=== PATIENT | female | born 1940 | race Caucasian/White ===

== ENCOUNTER 2020-04-13 20:14 | Observation (INO) ==
[2020-04-13] MEDS ORDERED: MECLIZINE 25 MG TABLET PO STA (20:57)
[2020-04-13] MEDS ORDERED: SODIUM CHLORIDE 0.9% 500 ML IV STA (20:57)
[2020-04-13] MEDS ORDERED: HYDROmorphone 2 MG/1 ML VIAL IV STA (20:57)
[2020-04-13] MEDS ORDERED: ONDANSETRON 4 MG/2 ML VIAL IV STA (20:57)
[2020-04-13 21:33] LABS: Basophils % 0.6 % (0.0-0.8); Eosinophils # 0.1 10*3/uL (0.0-0.87); Eosinophils % 1.4 % (0.00-10.9); Hematocrit 39.8 VOL% (35.7-47.0); Hemoglobin 12.9 GM/DL (12.0-16.0); Immature Granulocytes % 0.3 %; Immature Granulocytes Absolute 0.02 #; Lymphocytes # 1.4 10*3/uL (1.4-4.0); Lymphocytes % 22.2 % (21.3-54.2); Mean Corpuscular HGB Conc 32.4 GM/DL (32-36); Mean Corpuscular Volume 89.8 FL (87-102); Mean Platelet Volume 8.4 FL (9.6-12.0); Monocytes % 13.1 % (1.7-12.7); Neutrophils % 62.4 % (38.7-73.9); Platelet Count 293 T/CUMM (130-400); Red Blood Count 4.43 MC/CUMM (3.8-5.5); Red Cell Distribution Width 12.7 % (9.3-17.3); White Blood Count 6.4 T/CUMM (4-12)
[2020-04-13 21:42] LABS: PT Patient Result 11.2 SECS (9.8-11.9)
[2020-04-13 21:50] LABS: Alanine Aminotransferase < 9 U/L (13-56); Albumin 3.7 G/DL (3.4-5.0); Alkaline Phosphatase 88 U/L (45-117); Aspartate Amino Transferase 24 U/L (0-37); Blood Urea Nitrogen 16 MG/DL (7-18); CKMB % 2.8 %; Calcium 8.8 MG/DL (8.5-10.1); Estimated Glom Filtration Rate 73 ML/MIN; Glucose 113 MG/DL (74-106); Osmolality,Calculated 263.7 MOS/KG (273-304); Total Protein 6.8 G/DL (6.4-8.3); Troponin I < 0.015 NG/ML (0.00-0.045)
[2020-04-13] MEDS ORDERED: POTASSIUM CHLORIDE 20 MEQ TABLET PO STA (21:54)
[2020-04-13] MEDS ORDERED: MAGNESIUM SULF RIDER 2 GM in PREMIX 1 EACH IV STA (21:54)
[2020-04-13 21:59] LABS: Apearance,Urine CLEAR (Clear); Bilirubin,Urine Negative (Negative); Blood, Urine Small mg/dL (Negative); Ferritin 42.2 ng/ml (8-252); Glucose,Urine (UA) Negative (Negative); Ketones,Urine 5 mg/dL (Negative); Mucus,Urine Occasional /LPF (Occasional); Nitrite,Urine Negative (Negative); Protein,Urine Negative; RBC,Urine 6 /HPF (0-4); Urine Color Yellow (Yellow); Urine Specific Gravity 1.017 (1.001-1.035); Urine Urobilinogen < 2.0 EU/DL (0.2-1.0); WBC,Urine 17 /HPF (0-6)
[2020-04-13 22:26] LABS: Barbiturates Screen,Urine Negative (Negative); Benzodiazepines Screen,Urine Negative (Negative); Cannabinoid Screen,Urine Negative (Negative); Opiate Screen,Urine Negative (Negative); Phencyclidine Screen,Urine Negative (Negative)
[2020-04-13] MEDS ORDERED: POTASSIUM BICARB EFFERVESCENT 25 MEQ TABLET PO ONE (22:26)
[2020-04-13] MEDS ORDERED: HYDROmorphone 2 MG/1 ML VIAL IV ONE (22:26)
[2020-04-13] MEDS ORDERED: NITROGLYCERIN 2% OINT 1 INCH/GM PACK TOP ONE (22:35)
[2020-04-13] MEDS ORDERED: ASPIRIN 325 MG TABLET ONE (22:35)
[2020-04-13] MEDS ORDERED: cefTRIAXone 1,000 MG in SODIUM CHLORIDE 0.9% 100 ML IV STA (22:39)
[2020-04-13] MEDS ORDERED: ENOXAPARIN 100 MG/ML SYRINGE SUBCUT STA (22:40)
[2020-04-13] MEDS ORDERED: ASPIRIN CHEW 81 MG TABLET PO STA (23:37)
[2020-04-13] MEDS ORDERED: NITROGLYCERIN 2% OINT 1 INCH/GM PACK TOP STA (23:38)
[2020-04-14] MEDS ORDERED: ONDANSETRON 4 MG/2 ML VIAL IV STA (00:05)
[2020-04-14] MEDS ORDERED: ONDANSETRON 4 MG/2 ML VIAL IV PRN (00:25)
[2020-04-14] MEDS ORDERED: DOCUSATE SODIUM 100 MG CAPSULE PO PRN (00:25)
[2020-04-14] MEDS ORDERED: PROMETHAZINE 25 MG/1 ML VIAL IM PRN (00:25)
[2020-04-14] MEDS ORDERED: MAGNESIUM SULF RIDER 4 GM in PREMIX 1 EACH IV PRN (00:32)
[2020-04-14] MEDS ORDERED: MAGNESIUM SULF RIDER 2 GM in PREMIX 1 EACH IV PRN (00:32)
[2020-04-14] MEDS ORDERED: POTASSIUM CHLORIDE 20 MEQ TABLET PO PRN (00:32)
[2020-04-14] MEDS ORDERED: NITROGLYCERIN SL 0.4 MG TABLET SL PRN (00:34)
[2020-04-14] MEDS ORDERED: PROMETHAZINE INJ 12.5 MG in SODIUM CHLORIDE 0.9% 50 ML IV PRN (00:36)
[2020-04-14] MEDS ORDERED: FLUTICASONE 50 MCG NASAL SPRAY 16 GM BOTTLE BOTH NARES PRN (00:41)
[2020-04-14] MEDS ORDERED: FEXOFENADINE 180 MG TABLET PO PRN (00:41)
[2020-04-14] MEDS: SODIUM CHLORIDE 0.9% 1,000 ML IV SCH ×3 (01:28→18:24)
[2020-04-14] MEDS: ACETAMINOPHEN 325 MG TABLET PO PRN ×2 (05:01→16:17)
[2020-04-14 05:51] LABS: Basophils % 0.4 % (0.0-0.8); Eosinophils # 0.1 10*3/uL (0.0-0.87); Eosinophils % 0.7 % (0.00-10.9); Hematocrit 38.1 VOL% (35.7-47.0); Hemoglobin 12.2 GM/DL (12.0-16.0); Immature Granulocytes % 0.4 %; Immature Granulocytes Absolute 0.03 #; Lymphocytes # 1.1 10*3/uL (1.4-4.0); Lymphocytes % 15.1 % (21.3-54.2); Mean Corpuscular Volume 90.7 FL (87-102); Mean Platelet Volume 8.7 FL (9.6-12.0); Monocytes % 9.6 % (1.7-12.7); Neutrophils % 73.8 % (38.7-73.9); Platelet Count 300 T/CUMM (130-400); Red Cell Distribution Width 12.7 % (9.3-17.3); White Blood Count 7.2 T/CUMM (4-12)
[2020-04-14] MEDS ORDERED: CARBIDOPA LEVODOPA PO SCH (06:00)
[2020-04-14 06:20] LABS: Calcium 8.3 MG/DL (8.5-10.1); Osmolality,Calculated 266.2 MOS/KG (273-304); Risk Ratio 2.01; Thyroid Stimulating Hormone 0.926 uIU/ml (0.358-3.74); VLDL CHOLESTEROL 15.6 MG/DL
[2020-04-14] MEDS: LEVOTHYROXINE 100 MCG TABLET PO SCH (06:37)
[2020-04-14] MEDS ORDERED: KETOROLAC 15 MG/1 ML VIAL IV ONE (08:04)
[2020-04-14] MEDS: CALCIUM (CITRATE)/VITAMIN D 200 MG-125 UNIT TABLET PO SCH ×2 (08:38→21:55)
[2020-04-14] MEDS: LOSARTAN/HCTZ 50-12.5 MG TABLET PO SCH (08:38)
[2020-04-14] MEDS: RASAGILINE 0.5 MG TABLET PO SCH (08:38)
[2020-04-14] MEDS: PRAMIPEXOLE 0.25 MG TABLET PO SCH (08:39)
[2020-04-14] MEDS: PANTOPRAZOLE 40 MG TABLET PO SCH (08:40)
[2020-04-14] MEDS ORDERED: Loteprednol Etabonate [Lotemax] BOTH EYES SCH (09:00)
[2020-04-14] MEDS ORDERED: OLOPATADINE BOTH EYES SCH (09:00)
[2020-04-14 09:07] LABS: Total Protein (Chem) 6.3 G/DL (6.4-8.3)
[2020-04-14 09:33] LABS: Albumin (SPE) 4.4 G/DL (3.2-5.3); Albumin (SPE) Rel % 69.3 %; Alpha 1 (SPE) 0.2 G/DL (0.1-0.4); Alpha 1 (SPE) Rel % 3.3 %; Alpha 2 (SPE) 0.7 G/DL (0.4-1.0); Alpha 2 (SPE) Rel % 11.6 %; Beta (SPE) 0.6 G/DL (0.5-1.1); Beta (SPE) Rel % 9.1 %; Gamma (SPE) 0.4 G/DL (0.7-1.7); Gamma (SPE) Rel % 6.7 %
[2020-04-14] MEDS ORDERED: ENOXAPARIN 40 MG/0.4 ML SYRINGE SUBCUT SCH (21:00)
[2020-04-14] MEDS ORDERED: PRAMIPEXOLE 0.25 MG TABLET PO SCH (21:00)
[2020-04-14] MEDS ORDERED: cefTRIAXone 1,000 MG in SODIUM CHLORIDE 0.9% 100 ML IV SCH (22:00)
[2020-04-15] MEDS: SODIUM CHLORIDE 0.9% 1,000 ML IV SCH (03:13)
[2020-04-15 05:52] LABS: Basophils % 0.8 % (0.0-0.8); Eosinophils # 0.1 10*3/uL (0.0-0.87); Eosinophils % 2.3 % (0.00-10.9); Hematocrit 33.7 VOL% (35.7-47.0); Hemoglobin 10.8 GM/DL (12.0-16.0); Immature Granulocytes % 0.2 %; Immature Granulocytes Absolute 0.01 #; Lymphocytes # 1.1 10*3/uL (1.4-4.0); Lymphocytes % 20.8 % (21.3-54.2); Mean Corpuscular Volume 90.3 FL (87-102); Mean Platelet Volume 8.9 FL (9.6-12.0); Neutrophils % 60.9 % (38.7-73.9); Platelet Count 252 T/CUMM (130-400); Red Blood Count 3.73 MC/CUMM (3.8-5.5); Red Cell Distribution Width 12.9 % (9.3-17.3); White Blood Count 5.3 T/CUMM (4-12)
[2020-04-15 06:26] LABS: Alanine Aminotransferase < 6 U/L (13-56); Albumin 2.5 G/DL (3.4-5.0); Alkaline Phosphatase 62 U/L (45-117); Aspartate Amino Transferase 31 U/L (0-37); Blood Urea Nitrogen 9 MG/DL (7-18); Calcium 8.1 MG/DL (8.5-10.1); Estimated Glom Filtration Rate 82 ML/MIN; Glucose 89 MG/DL (74-106); Osmolality,Calculated 270.8 MOS/KG (273-304); Total Protein 5.1 G/DL (6.4-8.3)
[2020-04-15] MEDS: LEVOTHYROXINE 100 MCG TABLET PO SCH (07:05)
[2020-04-15 07:29] VITALS: BP 156/77
[2020-04-15] MEDS: RASAGILINE 0.5 MG TABLET PO SCH (09:08)
[2020-04-15] MEDS: CALCIUM (CITRATE)/VITAMIN D 200 MG-125 UNIT TABLET PO SCH (09:08)
[2020-04-15] MEDS: PRAMIPEXOLE 0.25 MG TABLET PO SCH (09:09)
[2020-04-15] MEDS: LOSARTAN/HCTZ 50-12.5 MG TABLET PO SCH (09:09)
[2020-04-15] MEDS: PANTOPRAZOLE 40 MG TABLET PO SCH (09:09)
== END 2020-04-15 12:36 | disposition home or self-care (01) ==
LOC: N.EDINP 20:14 → N.ED 20:14 → N.TELES 04-14 00:29
PROVIDERS: ADMIT Internal Medicine; ATTEND Internal Medicine